=== PATIENT | male | born 1965 | race African-American/Black ===

== ENCOUNTER 2018-05-03 14:25 | Emergency (ER) | END 2018-05-03 19:04 | disposition home or self-care (01) ==

== ENCOUNTER 2019-01-29 14:06 | Emergency (ER) | payer OTHER, MEDICAID ==
[~2019-01-29] VITALS: Ht 182.9 cm; Wt 144.0 kg
[~2019-01-29 14:06] MED LIST: HYDR25TA6 PO
[2019-01-29 14:13] VITALS: Ht 182.9 cm; Wt 144.0 kg
[2019-01-29] MEDS ORDERED: SOD CHLORIDE 0.9% 1,000 ML IV STA (15:36)
[2019-01-29] MEDS ORDERED: METF500T24 PO (16:18)
[2019-01-29] MEDS ORDERED: LANT3I SC ×2 (16:18→16:57)
[2019-01-29 16:57] VITALS: PULSE 62; RESP 18
[2019-01-29] MEDS ORDERED: AMLO5TAB4 PO (16:57)
[2019-01-29] MEDS ORDERED: METF-849 PO (16:57)
--- NOTE | 2019-01-29 17:01 | ERD ---
ER Documentation Chief Complaint Chief Complaint felt dizzy this AM; neuro intact; hx of DM/HTN; no meds for 2 mos HPI 53-year-old male who presents to the emergency room complaining of dizziness. He states that he has been without his diabetes medications for at least 2 months. His sugars been up and down. This morning he noted his blood pressure was significantly elevated and he felt lightheaded. He denied any headache ches t pain or shortness of breath. He felt a little unsteady the past without significant episode. The patient denies any shortness of breath or diaphoresis or dyspnea on exertion. No fevers or chills. No nausea vomiting or diarrhea. ROS All systems reviewed and are negative except as per history of present illness. Medications Home Meds Active Scripts Insulin Glargine* (Lantus*) 100 Unit/Ml Soln, 10 UNIT SC QHS for 30 Days, #1 VIAL Prov:URSULA ADRIAN MD 01/29/19 Metformin* (Glucophage*) 500 Mg Tab, 500 MG PO QAM for 30 Days, TAB Prov:URSULA ADRIAN MD 01/29/19 Amlodipine Besylate* (Norvasc*) 5 Mg Tablet, 5 MG PO DAILY for 30 Days, TAB Prov:URSULA ADRIAN MD 01/29/19 Reported Medications Insulin Glargine* (Lantus*) 100 Unit/Ml Soln, 10 UNIT SC BID, #1 VIAL 01/29/19 Metformin Hcl* (Metformin Hcl*) 500 Mg Tablet, 500 MG PO WITH BREAKFAST, #30 TAB 01/29/19 Discontinued Scripts Hydrochlorothiazide* (Hydrochlorothiazide*) 25 Mg Tab, 25 MG PO DAILY, #30 TAB Prov:JENARO TREJO MD 05/03/18 Allergies Allergies: Coded Allergies: No Known Allergy (Unverified , 01/29/19) PMhx/Soc History of Surgery: Yes (gallbladder 2009) Anesthesia Reaction: No Hx Neurological Disorder: No Hx Respiratory Disorders: No Hx Cardiac Disorders: Yes (HTN) Hx Psychiatric Problems: No Hx Miscellaneous Medical Probl: Yes (dm) Hx Alcohol Use: Yes Hx Substance Use: No Hx Tobacco Use: Yes Smoking Status: Former smoker FmHx Family History: diabetes Physical Exam Vitals Vital Signs Date Temp Pulse Resp B/P (MAP) Pulse Ox O2 O2 Flow FiO2 Time Delivery Rate 01/29/19 62 18 152/104 98 Room Air 16:57 (120) 01/29/19 98.9 74 20 227/102 100 14:13 (143) Physical Exam General: Well developed, well nourished, no acute distress Head: Normocephalic, atraumatic. Eyes: Pupils equally reactive, EOM intact ENT: Moist mucous membranes Neck: Supple, no lymphadenopathy Respiratory: Lungs clear bilaterally, no distress Cardiovascular: RRR, no murmurs, rubs, or gallops Abdominal: Soft, non-tender, non-distended, no peritoneal signs : Deferred MSK: No edema, no unilateral swelling, 5/5 strength Neurologic: Alert and oriented, moving all extremities, normal speech, no focal weakness, no cerebellar signs, no pronator drift, normal rapid alternating movements, NIH SS of 0 Skin: No rash Psych: Normal mood Result Diagram: 01/29/19 1552 01/29/19 1552 Results 24 hrs Laboratory Tests Test 01/29/19 14:13 01/29/19 15:52 Bedside Glucose 110 mg/dL White Blood Count 6.2 10^3/ul Red Blood Count 3.72 10^6/ul Hemoglobin 12.6 g/dl Hematocrit 38.2 % Mean Corpuscular Volume 102.7 fl Mean Corpuscular Hemoglobin 33.9 pg Mean Corpuscular Hemoglobin Concent 33.0 g/dl Red Cell Distribution Width 15.3 % Platelet Count 236 10^3/UL Mean Platelet Volume 9.8 fl Immature Granulocytes % 0.300 % Neutrophils % 46.1 % Lymphocytes % 46.1 % Monocytes % 6.0 % Eosinophils % 0.5 % Basophils % 1.0 % Nucleated Red Blood Cells % 0.0 /100WBC Immature Granulocytes # 0.020 10^3/ul Neutrophils # 2.9 10^3/ul Lymphocytes # 2.9 10^3/ul Monocytes # 0.4 10^3/ul Eosinophils # 0.0 10^3/ul Basophils # 0.1 10^3/ul Nucleated Red Blood Cells # 0.0 10^3/ul Sodium Level 140 mmol/L Potassium Level 4.9 mmol/L Chloride Level 107 mmol/L Carbon Dioxide Level 26 mmol/L Anion Gap 7 Blood Urea Nitrogen 16 mg/dl Creatinine 0.92 mg/dl Est Glomerular Filtrat Rate mL/min > 60 mL/min Glucose Level 107 mg/dl Calcium Level 10.1 mg/dl Troponin I 0.017 ng/ml Current Medications Medications Dose Sig/Devan Start Time Status Last (Trade) Ordered Route PRN Stop Time Admin Dose Reason Admin Sodium 1,000 ml @ Q1H STAT 01/29/19 DC 01/29/19 Chloride 1,000 mls/hr IV 15:36 15:53 01/29/19 16:35 Procedures/MDM EKG, MONITORS, & DIAGNOSTIC IMAGING: EKG: I reviewed and interpreted a 12-lead EKG. Rhythm: Normal sinus rhythm ST Changes: No contiguous ST segment elevations T waves: No contiguous T wave inversions Impression: No evidence of acute cardiac ischemia LAB INTERPRETATION: I reviewed the laboratory testing and it shows no evidence of acute process MEDICAL DECISION MAKING: The patient has nonspecific dizziness in the setting of elevated blood pressure. The patient's blood pressure has normalized without intervention. He has no headache and a nonfocal neurologic exam. I do not believe this is consistent with stroke. Consider mild dehydration given irregular glucose values in the setting of non-complaint with medications for at least 2 months. The patient is in between primary care providers. Patient's blood pressure is elevated to the point that I believe he would benefit from initiation of antihypertensive medication. He has been told that he needs blood pressure medication in the past. No evidence of endorgan dysfunction at this time. EKG and troponin would be reasonable. No indication for CT of the brain. ER COURSE: * Patient was given IV fluids. His laboratory testing is reassuring. Blood pressure remains improved. No indication to rapidly lower the blood pressure given likely chronic elevation. CONSULTATION: None DISPOSITION PLAN: The patient does not have an identifiable emergent medical condition that warrants inpatient hospitalization at this time. The patient is deemed safe for discharge with outpatient follow-up. We discussed follow up with the patient's primary care doctor within 24 to 48 hours as needed. We also discussed return to the emergency room for worsening symptoms or worsening condition. Outpatient referral: Primary care Discharge Medications: Norvasc 5 daily Metformin 500 every morning Lantus 10 subcu nightly Departure Diagnosis: Primary Impression: Dizziness Additional Impressions: Asymptomatic hypertensive urgency Encounter for medication refill Condition: Stable Patient Instructions: Dizziness, Unk Cause, Hypertension, Established, Out Of Control Referrals: COMMUNITY CLINICS YOU HAVE RECEIVED A MEDICAL SCREENING EXAM AND THE RESULTS INDICATE THAT YOU DO NOT HAVE A CONDITION THAT REQUIRES URGENT TREATMENT IN THE EMERGENCY DEPARTMENT. FURTHER EVALUATION AND TREATMENT OF YOUR CONDITION CAN WAIT UNTIL YOU ARE SEEN IN YOUR DOCTORS OFFICE WITHIN THE NEXT 1-2 DAYS. IT IS YOUR RESPONSIBILITY TO MA KE AN APPOINTMENT FOR FOLOW-UP CARE. IF YOU HAVE A PRIMARY DOCTOR --you should call your primary doctor and schedule an appointment IF YOU DO NOT HAVE A PRIMARY DOCTOR YOU CAN CALL OUR PHYSICIAN REFERRAL HOTLINE AT IF YOU CAN NOT AFFORD TO SEE A PHYSICIAN YOU CAN CHOSE FROM THE FOLLOWING [facility] [address] [facility]. [facility] [address] [facility] [facility] [address] [facility] [facility] [address] [facility]. [facility] [address] [facility]. [facility] [address] [facility]. [facility] YOU HAVE RECEIVED A MEDICAL SCREENING EXAM AND THE RESULTS INDICATE THAT YOU DO NOT HAVE A CONDITION THAT REQUIRES URGENT TREATMENT IN THE EMERGENCY DEPARTMENT. FURTHER EVALUATION AND TREATMENT OF YOUR CONDITION CAN WAIT UNTIL YOU ARE SEEN IN YOUR DOCTORS OFFICE WITHIN THE NEXT 1-2 DAYS. IT IS YOUR RESPONSIBILITY TO MAKE AN APPOINTMENT FOR FOLOW-UP CARE. IF YOU HAVE A PRIMARY DOCTOR --you should call your primary doctor and schedule and appointment IF YOU DO NOT HAVE A PRIMARY DOCTOR YOU CAN CALL OUR PHYSICIAN REFERRAL HOTLINE AT . IF YOU CAN NOT AFFORD TO SEE A PHYSICIAN YOU CAN CHOSE FROM THE FOLLOWING [facility] INSTITUTIONS: [facility] [address] [place] [address] [facility] [address] [place] [address] FOR[facility]LY [facility] + [facility] [address] [place] [address] Additional Instructions: Call your primary care doctor TOMORROW for an appointment during the next 1 WEEK.Tell the service secretary that you were referred from this facility.See the doctor sooner or return here if your condition worsens before your appointment time. URSULA ADRIAN MD Jan 29, 2019 17:01
[2019-01-29] MEDS ORDERED: KETOROLAC 15 MG INJ IV STA (17:06)
[2019-01-29 17:35] VITALS: BP 152/99
== END 2019-01-29 17:48 | disposition home or self-care (01) ==
LOC: E/R 14:06
DX: I10 Essential (primary) hypertension (principal); E11.9 Type 2 diabetes mellitus without complications; Z76.0 Encounter for issue of repeat prescription; Z79.4 Long term (current) use of insulin; Z87.891 Personal history of nicotine dependence
CPT/HCPCS: 36415; 80048; 82962; 84484; 85025; 93005; 96374; 99284; J1885; J7030

== ENCOUNTER 2019-05-26 13:35 | Emergency (ER) | payer OTHER, MEDICAID ==
[~2019-05-26] VITALS: Ht 185.4 cm; Wt 148.2 kg
[~2019-05-26 13:35] MED LIST changes: +AMLO5TAB4 PO; +HYDR-4011 PO; -HYDR25TA6 PO; +IBUP-1561 PO; +LANT3I SC; +METF-849 PO; +METF500T24 PO
[2019-05-26 14:34] VITALS: BP 145/89; PULSE 77; RESP 18; Ht 185.4 cm; Wt 148.2 kg
== END 2019-05-26 16:43 | disposition home or self-care (01) ==
LOC: FTE 13:35
DX: S93.401A Sprain of unspecified ligament of right ankle, initial encounter (principal); I10 Essential (primary) hypertension; E11.9 Type 2 diabetes mellitus without complications; F17.210 Nicotine dependence, cigarettes, uncomplicated; W01.0XXA Fall on same level from slipping, tripping and stumbling without subsequent striking against object, initial encounter; Y92.9 Unspecified place or not applicable; Z79.4 Long term (current) use of insulin